=== PATIENT | male | born 2000 | race Two or more races ===

== ENCOUNTER 2023-07-28 23:03 | Emergency (ER) | payer MEDICAID, OTHER ==
[~2023-07-28] VITALS: Ht 175.3 cm; Wt 72.0 kg
[2023-07-28] MEDS ORDERED: PHENSUP38 PR (23:52)
[2023-07-29 00:28] VITALS: BP 117/60; PULSE 68; RESP 20; TEMP 97.7; O2SAT 96
== END 2023-07-29 00:30 | disposition home or self-care (01) ==
LOC: ER 23:03
DX: K64.9 Unspecified hemorrhoids (principal)